=== PATIENT | female | born 1950 | race Caucasian/White ===

== ENCOUNTER 2017-01-06 12:37 | Emergency (ER) ==
[2017-01-06 12:48] VITALS: BP 124/73
--- NOTE | 2017-01-06 13:49 | PROVIDER DOCUMENTATION ---
HPI-Respiratory General - General Source: patient - History of Present Illness-Resp Quality of Pain: reports: tightness Severity in ED: reports: moderate Onset/Duration: reports: gradual, 1 week ago Timing: reports: still present, constant Context: reports: multiple patients with similar complaints, recent URI Cough Quality/Degree: reports: moderate, severe, productive cough Episode Frequency: chronic episodes Current Respiratory Medication Therapy: Initiated see nurses note Modifying Factors: worse with: exertion, coughing Associated Symptoms: reports: cough, fever/chills, muscle/bodyaches, nasal congestion, nasal drainage, shortness of breath, short of breath Similar Symptoms Previously?: Yes Recently seen or treated by another doctor?: Yes <Van Forte - Last Filed: 01/06/17 13:47> <Horace Velasquez - Last Filed: 01/06/17 14:56> - General Chief Complaint: Return/Recheck Stated Complaint: CONGESTION/COUGH Time Seen by Provider: 01/06/17 13:47 Allergies/Adverse Reactions: Patient Allergies Allergy/AdvReac Type Severity Reaction Status Date / Time tramadol Allergy RASH Verified 12/26/16 00:58 Home Medications: Home Medication List Medication Instructions Recorded Confirmed Last Taken Type Albuterol 2.5MG/Ipratrop 0.5MG 3 ml INH Q4-6H PRN PRN #30 neb 12/26/16 Unknown Rx [Duoneb] Budesonide/Formoterol Fumarate 10.2 gm IH BID #1 hfa.aer.ad 12/26/16 Unknown Rx [Symbicort 160-4.5 Mcg Inhaler] Ciprofloxacin HCl [Cipro] 500 mg PO BID 12/26/16 12/26/16 Unknown History Estradiol 1 mg PO DAILY 12/26/16 12/26/16 Unknown History Lansoprazole [Prevacid] 15 mg PO DAILY 12/26/16 12/26/16 Unknown History Meloxicam 15 mg PO DAILY 12/26/16 12/26/16 Unknown History Paroxetine HCl [Paxil] 20 mg PO DAILY 12/26/16 12/26/16 Unknown History Amoxicillin 875 mg PO BID #20 tablet 01/06/17 Unknown Rx Guaifenesin/Codeine [Robitussin-AC] 10 ml PO Q4H PRN PRN #4 oz 01/06/17 Unknown Rx Prednisone 10 mg PO BID #8 tablet 01/06/17 Unknown Rx - History of Present Illness-Resp Nature of Presenting Problem: patient is a 66 y/o F that presents to the ER with cough/congestion, wheezing, fever/chills, body aches x 1 week. Seen last week in the ER for similar symptoms. She went to urgent care today and was sent here. (Van Forte) Review of Systems - Adult - REVIEW OF SYSTEMS - ADULT Constitutional: reports: chills, fever Eyes: reports: no symptoms reported Ears, Nose, Mouth & Throat: reports: sinus problem. denies: ear pain, throat pain, throat swelling Cardiovascular: denies: edema, palpitations Respiratory: reports: cough, shortness of breath, wheezing Gastrointestinal: reports: no symptoms reported Genitourinary: reports: no symptoms reported Musculoskeletal: reports: no symptoms reported Integumentary: reports: no symptoms reported Neurological: reports: no symptoms reported Psychiatric: reports: no symptoms reported Endocrine: reports: no symptoms reported Hematologic/Lymphatic: reports: no symptoms reported Allergic/Immunologic: reports: no symptoms reported All Other Systems: Reviewed and Negative <Van Forte - Last Filed: 01/06/17 13:47> Past History - Adult - PAST MEDICAL HISTORY-ADULT Review of Records: reports: Old Records Reviewed, Nursing Assessment Review, Medications Reviewed Major Childhood Illnesses: reports: denies history Respiratory: reports: COPD Psychiatric: reports: depression - PRIOR SURGERIES/PROCEDURES Surgical/Procedure History: reports: appendectomy, cholecystectomy, hysterectomy - IMMUNIZATION STATUS Childhood Immunizations: See Nurse Assessment Flu Vaccine: See Nurse Assessment - FAMILY HISTORY Family History: reviewed, not pertinent - SOCIAL HISTORY Smoking: cigarettes, less than 1 pack/day Living Situation: family <Van Forte - Last Filed: 01/06/17 13:47> Physical Exam-General - PHYSICAL EXAM-ADULT Initial Vital Signs Reviewed: Yes - CONSTITUTIONAL General Appearance: alert, mild distress, moderate distress - EYES Eyes: PERRL/EOMI, pink conjunctivae - HEAD, EARS, NOSE, MOUTH & THROAT HENMT: normocephalic/atraumatic, moist mucous membranes, normal ENT inspection - NECK Neck: full range of motion, normal inspection. negative: lymphadenopathy - RESPIRATORY Respiratory: respiratory distress (mild), decreased breath sounds, wheezing, prolonged expiration - CARDIOVASCULAR Cardiovascular: no gallop, tachycardia - GASTROINTESTINAL (ABDOMEN) Abdominal Exam: normal bowel sounds, non tender, soft - MUSCULOSKELETAL Back Exam: no CVA tenderness, no vertebral tenderness Extremity: normal range of motion, no pedal edema, no calf tenderness, normal capillary refill - SKIN Integumentary: normal color, warm/dry - NEUROLOGIC Neurologic: grossly normal, no motor/sensory deficits - PSYCHIATRIC Psych/Mental Status: normal mood/affect, normal thought content, normal thought process, oriented x 3 <Van Forte - Last Filed: 01/06/17 13:47> Progress <Van Forte - Last Filed: 01/06/17 13:47> <Horace Velasquez - Last Filed: 01/06/17 14:56> - PLAN OF CARE/RESULTS Progress/Plan/Lab Results: Vital Signs - 24 hr 01/06/17 01/06/17 12:45 14:30 Temperature 100.1 F H Pulse Rate 101 H 87 Respiratory 20 20 Rate Blood Pressure 124/73 O2 Sat by Pulse 94 L 92 L Oximetry Orders Category Date Time Status ABG [RESP] Routine Lab 01/06/17 14:08 Completed BLOOD CULTURE [BLDCUL] Stat Lab 01/06/17 13:54 Ordered CBC WITH DIFF [HEME] Stat Lab 01/06/17 14:07 Completed CK PROFILE [SP CHEM] Stat Lab 01/06/17 14:07 Completed COMPREHENSIVE METABOLIC PANEL [CHEM] Stat Lab 01/06/17 14:07 Completed TROPONIN T Stat Lab 01/06/17 14:07 Completed Albuterol 2.5MG/Ipratrop 0.5MG [Duoneb (A & A)] Med 01/06/17 13:55 Discontinued 3 ml INH NOW ONE Aerosol Treatments Routine Oth 01/06/17 13:55 Completed Aerosol Treatments Stat Oth 01/06/17 13:55 Completed Laboratory Tests 01/06/17 01/06/17 01/06/17 14:07 14:07 14:07 WBC 10.01 RBC 4.50 Hgb 14.2 Hct 41.8 MCV 92.9 MCH 31.6 H MCHC 34.0 RDW Std Deviation 14.6 H Plt Count 274 MPV 8.8 Immature Gran % (Auto) 0.1 Neut % (Auto) 77.1 H Lymph % (Auto) 13.9 L [place] % (Auto) 7.8 Eos % (Auto) 0.8 Baso % (Auto) 0.3 Immature Gran # (Auto) 0.01 Neut # (Auto) 7.72 H Lymph # (Auto) 1.39 [place] # (Auto) 0.78 H Eos # (Auto) 0.08 Baso # (Auto) 0.03 Specimen Type Sample Site pH pCO2 pO2 HCO3 Base Excess Oxyhemoglobin ABG O2 Sat (Calculated) ABG O2 Saturation ABG Carboxyhemoglobin ABG Methemoglobin Darek Test A-a O2 Difference Total Hemoglobin Lactate Blood Gas Modality FiO2 % Sodium 135 L Potassium 3.9 Chloride 98 Carbon Dioxide 22 L Anion Gap 15 BUN 14 Creatinine 0.8 Estimated GFR/1.73 m2 > 60 BUN/Creatinine Ratio 18 Glucose 95 Calculated Osmolality 270 Calcium 9.1 Total Bilirubin 0.40 AST 20 ALT 14 Alkaline Phosphatase 83 Creatine Kinase 41 Troponin T < 0.010 Total Protein 7.1 Albumin 3.9 Globulin 3.0 Albumin/Globulin Ratio 1.0 01/06/17 14:08 WBC RBC Hgb Hct MCV MCH MCHC RDW Std Deviation Plt Count MPV Immature Gran % (Auto) Neut % (Auto) Lymph % (Auto) [place] % (Auto) Eos % (Auto) Baso % (Auto) Immature Gran # (Auto) Neut # (Auto) Lymph # (Auto) [place] # (Auto) Eos # (Auto) Baso # (Auto) Specimen Type ARTERIAL Sample Site R RADIAL pH 7.44 pCO2 36 pO2 68 HCO3 25.3 Base Excess 0.7 Oxyhemoglobin 92.2 L ABG O2 Sat (Calculated) 18.8 ABG O2 Saturation 96.4 ABG Carboxyhemoglobin 3.50 H ABG Methemoglobin 0.9 Darek Test YES A-a O2 Difference 37.0 Total Hemoglobin 14.5 Lactate 1.10 Blood Gas Modality ROOM AIR FiO2 % 21.0 Sodium Potassium Chloride Carbon Dioxide Anion Gap BUN Creatinine Estimated GFR/1.73 m2 BUN/Creatinine Ratio Glucose Calculated Osmolality Calcium Total Bilirubin AST ALT Alkaline Phosphatase Creatine Kinase Troponin T Total Protein Albumin Globulin Albumin/Globulin Ratio (Horace Velasquez) Departure <Van Forte - Last Filed: 01/06/17 13:47> - Departure Time of Disposition Order: 14:54 Certified Medical Emergency: Emergent <Horace Velasquez - Last Filed: 01/06/17 14:56> - Departure DIAGNOSIS: COPD with acute exacerbation, Fever in adult Disposition: HOME 01 Condition: Stable Additional Instructions: ED Follow Up Instructions: You have been treated by a care provider in the Emergency Department. These instructions are being provided to you so you can have an understanding of how to care for yourself upon discharge. Upon discharge from the Emergency Department, you are responsible for making arrangements for follow-up care by a physician of your choice. Take all prescribed medications as directed. Return to the Emergency Department immediately for any new or worsening symptoms. You may call the Physician Referral phone number at [phone] to obtain a list of Physicians who are taking new patients. Prescriptions: Guaifenesin/Codeine [Robitussin-AC] 10 ml PO Q4H PRN PRN #4 oz PRN Reason: Cough Amoxicillin 875 mg PO BID #20 tablet Prednisone 10 mg PO BID #8 tablet Referrals: None,PCP [Primary Care Provider] - Stephan Bennett MD [STAFF PHYSICIAN] - Call for Appoint. 1-2days Instructions: Chronic Obstructive Pulmonary Disease, [id number] Attestation - Scribe Verification/Attestation Scribe:: Van Forte Acting as Scribe for:: Horace Velasquez Scribe documention review:: This chart was documented by a scribe and accurately reflects the service the provider performed and the decisions made by the provider. <Van Forte - Last Filed: 01/06/17 13:47> Physician Attestation - Physician Attestation I, the provider, attest to the following statement:: Horace Velasquez Physician documentation Attestation:: This documentation recorded by the scribe accurately reflects the service I personally performed and the decisions made by me. <Van Forte - Last Filed: 01/06/17 13:47>
[2017-01-06] MEDS ORDERED: DUONEB (A & A) INH ONE (13:55)
[2017-01-06 14:24] LABS: BE 0.7 mmoll (-3.0-3.0); BLOOD TYPE ARTERIAL; METHB 0.9 % (0.0-1.5); O2(CT) 18.8 mL/dL (15.0-23.0); PCO2(98.6) 36 mmHg (35-45); PO2(98.6) 68 mmHg (60-100); SAMPLE BLOOD; SAO2 96.4 % (95.0-100.0); THB 14.5 g/dL (11.5-17.4); pH(98.6) 7.44 (7.35-7.45)
[2017-01-06 14:24] LABS: MANUAL DIFF NEEDED? NO
[2017-01-06 14:26] LABS: BASO% 0.3 % (0.0-0.8); EOS# 0.08 X1000 (0.0-0.7); EOS% 0.8 % (0.0-10.0); HEMATOCRIT 41.8 % (37.0-47.0); HEMOGLOBIN 14.2 g/dL (12.0-16.0); IMM GRAN# 0.01 X1000 (0.0-0.04); IMM GRAN% 0.1 % (0.0-0.5); LYMPH# 1.39 X1000 (1.2-3.4); LYMPH% 13.9 % (20.5-51.1); MCH 31.6 PG (27-31); MCV 92.9 FL (81-99); MONO# 0.78 X1000 (0.11-0.59); MONO% 7.8 % (1.7-9.3); MPV 8.8 FL (7.4-10.4); NEUT% 77.1 % (42.2-75.2); PLT 274 X1000 (130-400)
[2017-01-06 14:27] LABS: ALLEN TEST YES; DRAW SITE R RADIAL; MODALITY ROOM AIR
[2017-01-06 14:42] LABS: AGAP 15; ALBUMIN 3.9 g/dL (3.5-5.0); ALKALINE PHOSPHATASE 83 U/L (32-104); BUN 14 mg/dL (8-22); CALCIUM 9.1 mg/dL (8.8-10.2); CHLORIDE 98 mmol/L (98-107); CK PROFILE 41 U/L (24-173); COSMO 270; GOT 20 U/L (10-30); GPT 14 U/L (10-36); POTASSIUM 3.9 mmol/L (3.5-5.1); SODIUM 135 mmol/L (136-145); TCO2 22 mmol/L (25-35); TOTAL PROTEIN 7.1 g/dL (6.3-8.3)
== END 2017-01-06 15:06 | disposition home or self-care (01) ==
LOC: P.ED 12:37
DX: J44.1 Chronic obstructive pulmonary disease with (acute) exacerbation (principal); R50.9 Fever, unspecified; R05 Cough; R06.02 Shortness of breath; R06.2 Wheezing; F17.210 Nicotine dependence, cigarettes, uncomplicated; F32.9 Major depressive disorder, single episode, unspecified; Z79.899 Other long term (current) drug therapy; Z79.1 Long term (current) use of non-steroidal anti-inflammatories (NSAID); Z79.51 Long term (current) use of inhaled steroids
CPT/HCPCS: 36415; 80053; 82550; 82805; 84484; 85025; 87040; 94640; 99282

== ENCOUNTER 2017-01-09 11:51 | Inpatient (IN) | payer OTHER ==
[2017-01-09] MEDS ORDERED: FLUZONE QUAD 2016-2017 SYRINGE IM ONE (13:21)
[2017-01-09] MEDS ORDERED: PNEUMOVAX 23 IM ONE (13:29)
[2017-01-09] MEDS ORDERED: SALINE LOCK IV FLUID XX ONE (13:59)
[2017-01-09] MEDS ORDERED: DUONEB (A & A) INH PRN (14:01)
[2017-01-09] MEDS ORDERED: ZOFRAN IV PRN (14:01)
[2017-01-09] MEDS ORDERED: ROBITUSSIN-AC PO PRN (14:02)
[2017-01-09 14:44] LABS: HEMATOCRIT 39.5 % (37.0-47.0); HEMOGLOBIN 13.6 g/dL (12.0-16.0); MCH 31.9 PG (27-31); MCHC 34.4 g/dL (33-37); MCV 92.7 FL (81-99); MPV 8.7 FL (7.4-10.4); RBC 4.26 XMIL (4.2-5.4)
[2017-01-09] MEDS: SOLU-MEDROL IV SCH ×2 (14:57→22:25)
[2017-01-09] MEDS: LOVENOX SUBQ SCH (14:58)
[2017-01-09] MEDS: NS 1,000 ML IV SCH (14:59)
[2017-01-09] MEDS: ROCEPHIN 1 GM/NS 50 ML IV SCH (14:59)
[2017-01-09 15:14] LABS: AGAP 10; ALBUMIN 3.7 g/dL (3.5-5.0); ALKALINE PHOSPHATASE 79 U/L (32-104); BUN 15 mg/dL (8-22); CALCIUM 9.3 mg/dL (8.8-10.2); CHLORIDE 101 mmol/L (98-107); COSMO 280; GOT 41 U/L (10-30); GPT 29 U/L (10-36); POTASSIUM 3.7 mmol/L (3.5-5.1); SODIUM 140 mmol/L (136-145); TCO2 29 mmol/L (25-35); TOTAL PROTEIN 7.2 g/dL (6.3-8.3)
[2017-01-09] MEDS: DUONEB (A & A) INH SCH ×3 (15:59→22:43)
--- NOTE | 2017-01-09 16:09 | Diag Imaging Result Document ---
PROCEDURE NAME: CHEST-2 VIEWS - 01/09/2017 CHEST, 2 VIEWS: FINDINGS: Compared to 12/26/2016. The lungs are hyperexpanded. There is an increased AP diameter to the chest. There are no infiltrates. The heart is not enlarged. The pulmonary vessels are small. No pleural effusions. IMPRESSION: 1. Severe emphysema. 2. Increased density in the medial right base believed to be a superimposition of shadows rather than a small infiltrate.
[2017-01-09] MEDS: SYMBICORT 160/4.5 MICROGM INHALER INH SCH (19:33)
[2017-01-09] MEDS: TYLENOL PO PRN (20:05)
[2017-01-10] MEDS: DUONEB (A & A) INH SCH ×6 (02:40→22:33)
[2017-01-10] MEDS: SOLU-MEDROL IV SCH ×3 (06:04→21:47)
[2017-01-10] MEDS: NS 1,000 ML IV SCH ×2 (06:08→17:16)
[2017-01-10] MEDS: SYMBICORT 160/4.5 MICROGM INHALER INH SCH ×2 (07:52→19:21)
[2017-01-10] MEDS: ESTRACE PO SCH (09:56)
[2017-01-10] MEDS: PAXIL PO SCH (09:56)
[2017-01-10] MEDS: TYLENOL PO PRN (13:00)
[2017-01-10] MEDS: LOVENOX SUBQ SCH (16:29)
[2017-01-10] MEDS: ROCEPHIN 1 GM/NS 50 ML IV SCH (16:30)
[2017-01-11] MEDS: DUONEB (A & A) INH SCH ×6 (02:58→23:02)
[2017-01-11] MEDS: SOLU-MEDROL IV SCH ×3 (05:42→22:56)
[2017-01-11] MEDS: SYMBICORT 160/4.5 MICROGM INHALER INH SCH ×2 (07:45→20:01)
[2017-01-11] MEDS: PAXIL PO SCH (08:08)
[2017-01-11] MEDS: NS 1,000 ML IV SCH ×2 (08:08→14:12)
[2017-01-11] MEDS: ESTRACE PO SCH (08:08)
--- NOTE | 2017-01-11 08:10 | PROGRESS NOTE ---
DATE: 01/11/2017 SUBJECTIVE: Patient without new complaints. States she is still coughing and congested, and still short of breath but does note that she feels a little bit better. Denies any fevers or chills. Currently denies any production to her cough. States that she slept a little bit better last night. OBJECTIVE: Vital Signs: Reviewed. Temperature 98 degrees, pulse 88, respiratory rate 20, BP 113/62. General: Patient is well developed, well nourished. She is currently in no real respiratory distress. She is awake, alert, and oriented. Speech is regular. Memory is intact. HEENT: Normocephalic, atraumatic. ANGELICA. Neck: Supple. CV: Regular rate. Chest: Decreased breath sounds but improved other than wheezing which has improved from yesterday's examination. Abdomen: Soft. Neurologic: No changes. Labs: Reviewed. ASSESSMENT: 1. Chronic obstructive pulmonary disease with exacerbation. 2. Right middle lobe pneumonia. 3. Chronic tobacco abuse. 4. Chronic hypoxic respiratory failure. PLAN: We will admit patient to the hospital. We will continue to follow. Further orders as needed.
--- NOTE | 2017-01-11 08:18 | HISTORY AND PHYSICAL ---
CHIEF COMPLAINT: Cough and shortness of breath. HISTORY OF PRESENT ILLNESS: The patient is a 66-year-old female who actually presented to the emergency department 2 days prior to being admitted. At that point, she was having cough, congestion, shortness of breath. Symptoms had been going on for a week. She was seen also a week before in the ER as well as the day before in the urgent care. Patient was offered admission but declined. Unfortunately, over the next few days, she continued to worsen with increased cough, congestion, shortness of breath, increased work of breathing. Denied any true chest pain, palpitations. Denies any fevers or chills. Denies any true muscle aches but does note that she had muscle aches last week. ALLERGIES: Tramadol causing a rash. MEDICATIONS: No current medication list. REVIEW OF SYSTEMS: As noted above. Positive for cough, congestion, shortness of breath, increased work of breathing, mildly productive cough - worsens when she lies down. No edema. Not does not check her weight on any regular basis. Denies any chest pain or palpitations. Denies any headaches, blurred vision, change in vision. Denies any focalized numbness, tingling, weakness. Denies any dysuria, frequency. Denies constipation, melena, hematochezia. PAST MEDICAL HISTORY: Significant for COPD, depression, status post appendectomy, cholecystectomy, and hysterectomy. SOCIAL HISTORY: Patient lives at home. Her primary care is Carola Kelly, at [facility]. She continues to smoke approximately a pack a day despite multiple discussions in the past. FAMILY HISTORY: Noncontributory. PHYSICAL EXAMINATION: VITAL SIGNS: Vital signs reviewed. Temperature 100.1 degrees, pulse 101, respiratory rate 20, BP 124/73. GENERAL: Patient is well developed, well nourished. She is currently in no real respiratory distress. She is awake, alert, oriented. NECK: Supple. CV: Regular rate. CHEST: Relatively clear. ABDOMEN: Soft and nondistended. EXTREMITIES: Moves all extremities. NEUROLOGIC: No focal changes. SKIN: Warm and dry. No rashes. LABORATORY DATA: CBC essentially normal. CMP normal. First set of cardiac enzymes are negative. ABG 7.4, pCO2 36, PO2 68, carboxyhemoglobin elevated at 3.5. ASSESSMENT: 1. Chronic obstructive pulmonary disease with exacerbation. 2. Right middle lobe pneumonia. 3. Chronic tobacco abuse. PLAN: We will admit the patient to the hospital. IV fluids, antibiotics, breathing treatments, Solu-Medrol. We will continue to follow. Discussed with patient the perils of smoking as well as reasons to stop. We will continue to follow.
--- NOTE | 2017-01-11 08:41 | PROGRESS NOTE ---
DATE: 01/11/2017 SUBJECTIVE: The patient states she is feeling a little bit better. Less cough. Positive. Congestion still short of breath. Still wheezing. Still short of breath with any true movement. Also notes that she is quite jittery, nervous, and did not sleep well last night. Thinks it may be the medication. OBJECTIVE: Vital Signs: Reviewed. Temperature 98 degrees, pulse 86, respiratory rate 20, blood pressure 131/71, sat 94% on room air. General: Patient is well developed, well nourished. Currently in mild respiratory distress, which is improved from yesterday's exam. HEENT: Normocephalic atraumatic. Pupils equal, round, and reactive to light. Neck: Supple. Cardiovascular: Regular rate. Chest: Relatively equal bilaterally. Positive wheezing. Equal bilaterally. Abdomen: Soft. Extremities: Moves all extremities. ASSESSMENT: 1. Chronic obstructive pulmonary disease with moderate exacerbation. 2. Right middle lobe pneumonia. 3. Acute anxiety secondary to steroids and breathing treatments. 4. Chronic tobacco abuse. PLAN: Discussed with the patient that she needs to stop smoking. We will continue medications. We will decrease IV fluids today. Will not decrease her steroids secondary to her significant wheezing.
[2017-01-11] MEDS: ATIVAN PO PRN ×2 (12:55→17:28)
[2017-01-11] MEDS: ROCEPHIN 1 GM/NS 50 ML IV SCH (14:40)
[2017-01-11] MEDS: LOVENOX SUBQ SCH (14:41)
[2017-01-12] MEDS: DUONEB (A & A) INH SCH ×6 (04:32→23:42)
[2017-01-12] MEDS: NS 1,000 ML IV SCH (04:52)
[2017-01-12] MEDS: SOLU-MEDROL IV SCH ×3 (06:06→22:31)
[2017-01-12] MEDS: SYMBICORT 160/4.5 MICROGM INHALER INH SCH ×2 (07:31→19:24)
--- NOTE | 2017-01-12 08:40 | PROGRESS NOTE ---
DATE: 01/12/2017 SUBJECTIVE: Patient states she is having trouble breathing this morning, increased cough. She cannot cough anything up. She is having increased shortness of breath. Denies any chest pain or palpitations. OBJECTIVE: Vital signs: Temperature 97, pulse 84, respiratory 18, BP 138/67. General: Patient is well developed, well nourished. She is in mild respiratory distress this morning. HEENT: Normocephalic, atraumatic. Neck: Supple. CV: Regular rate. Chest: Decreased breath sounds. Positive wheezing. Positive rhonchi throughout. Abdomen: Soft. Extremities: Moves all extremities. Neurologic: No changes. LABS: No current labs this morning. ASSESSMENT: 1. Chronic obstructive pulmonary disease with moderate exacerbation. 2. Hypoxic respiratory failure. 3. Chronic tobacco abuse. 4. Hypertension. PLAN: We will continue patient on her current medications. We will not wean her steroids today given her current respiratory status. However, will add Acapella treatments and continue to follow.
[2017-01-12] MEDS: ESTRACE PO SCH (08:58)
[2017-01-12] MEDS: PAXIL PO SCH (08:58)
[2017-01-12] MEDS: ROCEPHIN 1 GM/NS 50 ML IV SCH (14:10)
[2017-01-12] MEDS: LOVENOX SUBQ SCH (14:10)
[2017-01-12] MEDS: ATIVAN PO PRN ×2 (14:35→22:31)
[2017-01-13] MEDS: TYLENOL PO PRN (01:12)
[2017-01-13] MEDS: NS 1,000 ML IV SCH ×2 (01:16→21:27)
[2017-01-13] MEDS: DUONEB (A & A) INH SCH ×5 (03:27→19:54)
[2017-01-13] MEDS: SOLU-MEDROL IV SCH ×3 (06:01→21:25)
[2017-01-13 06:34] LABS: AGAP 8; ALBUMIN 3.2 g/dL (3.5-5.0); ALKALINE PHOSPHATASE 55 U/L (32-104); BUN 11 mg/dL (8-22); CALCIUM 8.9 mg/dL (8.8-10.2); CHLORIDE 104 mmol/L (98-107); COSMO 286; GOT 34 U/L (10-30); GPT 53 U/L (10-36); MAGNESIUM 2.2 mg/dL (1.5-2.7); POTASSIUM 4.3 mmol/L (3.5-5.1); SODIUM 142 mmol/L (136-145); TCO2 30 mmol/L (25-35); TOTAL PROTEIN 5.8 g/dL (6.3-8.3)
[2017-01-13 06:45] LABS: HEMATOCRIT 34.8 % (37.0-47.0); HEMOGLOBIN 11.5 g/dL (12.0-16.0); MCH 30.9 PG (27-31); MCV 93.5 FL (81-99); MPV 9.1 FL (7.4-10.4); RBC 3.72 XMIL (4.2-5.4)
[2017-01-13] MEDS: SYMBICORT 160/4.5 MICROGM INHALER INH SCH ×2 (08:00→19:54)
[2017-01-13] MEDS: PAXIL PO SCH ×2 (09:01)
[2017-01-13] MEDS: ESTRACE PO SCH (09:01)
[2017-01-13] MEDS: ROCEPHIN 1 GM/NS 50 ML IV SCH (13:32)
[2017-01-13] MEDS: LOVENOX SUBQ SCH (13:32)
[2017-01-13] MEDS: ATIVAN PO PRN (21:25)
[2017-01-14] MEDS: DUONEB (A & A) INH SCH ×4 (00:31→11:45)
[2017-01-14] MEDS: SOLU-MEDROL IV SCH (05:20)
[2017-01-14] MEDS: SYMBICORT 160/4.5 MICROGM INHALER INH SCH (08:15)
[2017-01-14] MEDS: ESTRACE PO SCH (08:29)
[2017-01-14] MEDS: ATIVAN PO PRN ×2 (08:29→14:23)
[2017-01-14] MEDS: PAXIL PO SCH (08:29)
[2017-01-14 11:13] VITALS: BP 147/67
--- NOTE | 2017-01-14 16:23 | DISCHARGE SUMMARY ---
ADMISSION DATE: 01/09/2017 DISCHARGE DATE: 01/14/2017 DISCHARGE DIAGNOSES: 1. Chronic obstructive pulmonary disease with moderate exacerbation. 2. Acute hypoxic respiratory failure improved. 3. Chronic tobacco abuse. 4. Hypertension. 5. Chronic anxiety. CONSULTATIONS: None. PROCEDURES: None. BRIEF HOSPITAL COURSE: Patient is a 66-year-old female who was admitted as on the [facility] and treated in the usual fashion. Placed on breathing treatments, antibiotics, oxygen. She thankfully was able to wean off the oxygen and on discharge her O2 saturations were stable off of oxygen. She also was able to continue to wean down on steroids without much difficulty. She continued to have problems with anxiety throughout the hospital stay which was easily relieved with Ativan. DISPOSITION: The patient will be discharged home. TIME SPEND ON DISCHARGE: 35 minutes was spent in discharge planning and instructions. Discussed with patient the perils of smoking. Discussed with her ways to continue to stop. She notes that she is going to try. We will continue her home medications. She notes that she does not want to take Paxil anymore however she does want to continue taking estradiol. I did discuss her that under no circumstances can she continue estradiol if she smokes. The patient understands.
== END 2017-01-14 14:45 | disposition home health service (06) | DRG 190 ==
LOC: P.DIRADM 11:51 → P.WC 12:11 → P.MEDSURG 12:36
PROVIDERS: ADMIT Family Medicine; ATTEND Family Medicine
DX: J44.1 Chronic obstructive pulmonary disease with (acute) exacerbation (principal); J96.21 Acute and chronic respiratory failure with hypoxia; F17.210 Nicotine dependence, cigarettes, uncomplicated; F32.9 Major depressive disorder, single episode, unspecified; F41.9 Anxiety disorder, unspecified; T38.0X5A Adverse effect of glucocorticoids and synthetic analogues, initial encounter; I10 Essential (primary) hypertension; Z79.899 Other long term (current) drug therapy; Z79.51 Long term (current) use of inhaled steroids; Z79.890 Hormone replacement therapy
CPT/HCPCS: 36415; 71020; 80053; 83735; 85027; 87040; 87070; 87205; 94640; 94667; 94668; 94761; 94799; J0696; J1650; J2405; J2920; J2930; J7030